=== PATIENT | female | born 1990 | race Hispanic/Latino ===

== ENCOUNTER 2019-04-17 09:17 | Emergency (ER) | payer MEDICAID ==
[2019-04-17] MEDS ORDERED: IBUPROFEN 600 MG TABLET ONE (09:43)
== END 2019-04-17 09:56 | disposition home or self-care (01) ==
LOC: EDH 09:17
DX: S93.402A Sprain of unspecified ligament of left ankle, initial encounter (principal); Z98.890 Other specified postprocedural states; X58.XXXA Exposure to other specified factors, initial encounter; Y93.89 Activity, other specified; Y92.098 Other place in other non-institutional residence as the place of occurrence of the external cause; Y99.8 Other external cause status
CPT/HCPCS: 73610